=== PATIENT | female | born 1985 ===

== ENCOUNTER 2016-06-17 10:53 | Emergency (ER) | payer SELFPAY ==
[2016-06-17 11:30] VITALS: BP 126/73
[2016-06-17 11:46] LABS: Basophils % (Auto) 0.4 % (0.0-1.8); Eosinophils % (Auto) 0.3 % (0.0-4.3); Hematocrit 35.2 % (30.3-42.9); Hemoglobin 11.9 gm/dl (10.1-14.3); Mean Corpuscular HGB Conc 34 % (30-34); Mean Corpuscular Hemoglobin 30 pg (28-32); Mean Corpuscular Volume 90 fl (79-97); Platelet Count 389 K/mm3 (140-440); Red Blood Count 3.94 M/mm3 (3.65-5.03); Red Cell Distribution Width 13.6 % (13.2-15.2); White Blood Count 10.4 K/mm3 (4.5-11.0)
[2016-06-17 11:55] LABS: Anion Gap 17 mmol/L; Blood Urea Nitrogen 10 mg/dL (7-17); Carbon Dioxide 25 mmol/L (22-30); Chloride 102.5 mmol/L (98-107); Glucose 125 mg/dL (65-100); Potassium 3.9 mmol/L (3.6-5.0); Sodium 141 mmol/L (137-145)
[2016-06-17 13:16] LABS: Bacteria,Urine 1+ /HPF (Negative); Bilirubin,Urine NEG (Negative); Blood,Urine LG (Negative); Ketones,Urine NEG (Negative); Leukocyte Esterase,Urine NEG (Negative); Mucus,Urine FEW /HPF; Nitrite,Urine NEG (Negative); Protein,Urine <15 mg/dL mg/dL (Negative); Urobilinogen,Urine < 2.0 mg/dL (<2.0)
--- NOTE | 2016-06-18 00:35 | ED Elopement Review ---
ED Pt Elopement review - Results review Lab results: Laboratory Tests 06/17/16 06/17/16 06/17/16 11:33 11:33 11:33 WBC 10.4 RBC 3.94 Hgb 11.9 Hct 35.2 MCV 90 MCH 30 MCHC 34 RDW 13.6 Plt Count 389 Lymph % (Auto) 30.1 [place] % (Auto) 5.6 Eos % (Auto) 0.3 Baso % (Auto) 0.4 Lymph # 3.1 [place] # 0.6 Eos # 0.0 Baso # 0.0 Seg Neutrophils % 63.6 Seg Neutrophils # 6.6 Sodium 141 Potassium 3.9 Chloride 102.5 Carbon Dioxide 25 Anion Gap 17 BUN 10 Creatinine 0.4 L Estimated GFR > 60 BUN/Creatinine Ratio 25.00 Glucose 125 H Calcium 9.0 HCG, Qual Negative Urine Color Urine Turbidity Urine pH Ur Specific [place] Urine Protein Urine Glucose (UA) Urine Ketones Urine Blood Urine Nitrite Urine Bilirubin Urine Urobilinogen Ur Leukocyte Esterase Urine WBC (Auto) Urine RBC (Auto) U Epithel Cells (Auto) Urine Bacteria (Auto) Urine Mucus 06/17/16 12:53 WBC RBC Hgb Hct MCV MCH MCHC RDW Plt Count Lymph % (Auto) [place] % (Auto) Eos % (Auto) Baso % (Auto) Lymph # [place] # Eos # Baso # Seg Neutrophils % Seg Neutrophils # Sodium Potassium Chloride Carbon Dioxide Anion Gap BUN Creatinine Estimated GFR BUN/Creatinine Ratio Glucose Calcium HCG, Qual Urine Color Yellow Urine Turbidity Clear Urine pH 6.0 Ur Specific [place] 1.009 Urine Protein <15 mg/dl Urine Glucose (UA) Neg Urine Ketones Neg Urine Blood Lg Urine Nitrite Neg Urine Bilirubin Neg Urine Urobilinogen < 2.0 Ur Leukocyte Esterase Neg Urine WBC (Auto) 4.0 Urine RBC (Auto) 24.0 U Epithel Cells (Auto) 1.0 Urine Bacteria (Auto) 1+ Urine Mucus Few - Call Back decision Pt Call Back Decision: Pt to F/U with PMD
== END 2016-06-17 13:50 | disposition left against medical advice (07) ==
LOC: ED 10:53
DX: R11.0 Nausea (principal); M79.604 Pain in right leg; M79.605 Pain in left leg; M79.89 Other specified soft tissue disorders; Z53.21 Procedure and treatment not carried out due to patient leaving prior to being seen by health care provider
CPT/HCPCS: 36415; 80048; 81001; 84703; 85025

== ENCOUNTER 2016-06-18 02:53 | Emergency (ER) | payer SELFPAY ==
[2016-06-18 04:14] VITALS: BP 126/85
[2016-06-18] MEDS ORDERED: TORADOL IM ONE (07:43)
--- NOTE | 2016-06-18 07:54 | Emergency Department Report ---
ED Recheck HPI - General Chief Complaint: Medical Clearance Stated Complaint: VAGINAL BLEEDING Time Seen by Provider: 06/18/16 07:24 Source: patient, EMS, RN notes reviewed Mode of arrival: Wheelchair Limitations: No Limitations - History of Present Illness Initial Comments: Patient here reports that she is here to get her lab work she says she was here on 06/17 for vaginal spotting. She says she is in the treatment program in [facility] for narcotics abuse. She said she wants to make sure that she does have a urinary tract infection and also if she wants to get her lab results because she was spotting at the time. Patient now says that she is on her period and asked why she was cramping when she came in. She wants to know if she is . She said when she came into spotting but now she has.. She denies any other complaints about that she wants her lab results. Patient is in a wheelchair from previous injury. She had eloped and 06/17 and there is an elopement note that Dr. Borges reviewed her lab results from 06/17/16. Patient had. BMP and urinalysis done here initially and that she was running urine but she does have an infection, her BMP is stable. This was communicated to patient on this visit. She denies any fever or chills. Denies any abdominal pain. She is now requesting pain medication for lower back pain. Complaint: other (patient here because she wants her lab results. ) Initial Visit For: other (general spotting and cramping to abdomen) Returns Today for: other (today to get her lab results because she developed yesterday.) Symptoms Since Prior Visit: improved Context: other (return for lab results) Associated Symptoms: none - Related Data Allergies Allergy/AdvReac Type Severity Reaction Status Date / Time No Known Allergies Allergy Unverified 06/17/16 11:30 ED Review of Systems ROS: Stated complaint: VAGINAL BLEEDING Other details as noted in HPI Comment: All other systems reviewed and negative Constitutional: denies: chills, fever Respiratory: no symptoms reported Cardiovascular: denies: chest pain, palpitations, edema, syncope Gastrointestinal: denies: abdominal pain, nausea, vomiting Genitourinary: denies: urgency, dysuria, frequency, hematuria, discharge, abnormal menses (patient says that she has abnormal menses but now she is on her period) Musculoskeletal: back pain (lower back) Skin: denies: rash Neurological: denies: headache ED Past Medical Hx - Past Medical History Previous Medical History?: Yes Hx GERD: Yes Hx Psychiatric Treatment: Yes (DEPRESSION / ANXIETY) Additional medical history: T6 / T7 INCOMPLETE INJURY - Surgical History Past Surgical History?: Yes Additional Surgical History: VENA CAVA FILTER. BILATERAL HEEL CORD LENGTHENING. PLATE RIGHT WRIST. BACK SURGERY - Family History Family history: no significant - Social History Smoking Status: Current Every Day Smoker Substance Use Type: None ED Physical Exam - General Limitations: No Limitations General appearance: alert, in no apparent distress - Head Head exam: Present: atraumatic, normocephalic, normal inspection - Neck Neck exam: Present: normal inspection, full ROM. Absent: tenderness, thyromegaly - Respiratory Respiratory exam: Present: normal lung sounds bilaterally. Absent: respiratory distress, chest wall tenderness - Cardiovascular Cardiovascular Exam: Present: regular rate, normal rhythm, normal heart sounds - GI/Abdominal GI/Abdominal exam: Present: soft, normal bowel sounds. Absent: distended, tenderness - Extremities Exam Extremities exam: Present: normal capillary refill, other (patient is paralyzed and intubated wheelchair.). Absent: tenderness, pedal edema - Back Exam Back exam: Present: normal inspection, full ROM. Absent: tenderness, CVA tenderness (R), paraspinal tenderness, vertebral tenderness - Neurological Exam Neurological exam: Present: alert, oriented X3 - Psychiatric Psychiatric exam: Present: normal affect, normal mood - Skin Skin exam: Present: warm, dry, intact, normal color. Absent: rash ED Course Vital Signs 06/18/16 02:55 Temperature 98 F Pulse Rate 89 Respiratory 18 Rate Blood Pressure 126/85 [Right] O2 Sat by Pulse 100 Oximetry - Reevaluation(s) Reevaluation #1: 06/18/16 08:20 patient given Toradol because she requested because she says she's having in lower back pain. ED Recheck MDM - Medical Decision Making ED course: She lab reviewed from 06/17/2016 shows large amount of blood but patient is on her menses. Says she has back pain on and off and she is having pain at present and she requested to have pain medication and therefore she was given Toradol 60 mg IM. Her BMP is stable, negative test and a urinalysis has no sign of urinary tract infection. I discussed with patient her lab results and reviewed lab results at her bedside. Patient discharged from ED back to [place] in stable condition. Critical care attestation.: If time is entered above; I have spent that time in minutes in the direct care of this critically ill patient, excluding procedure time. ED Disposition Clinical Impression: Onset of menses Backache, unspecified Qualifiers: Back pain location: low back pain Chronicity: chronic Back pain laterality: unspecified Sciatica presence: without sciatica Qualified Code(s): M54.5 - Low back pain; G89.29 - Other chronic pain Disposition: DISCHARGED TO HOME OR SELFCARE Is pt being admited?: No Does the pt Need Aspirin: No Condition: Stable Instructions: Menstruation (ED), Back Pain (ED) Additional Instructions: Please follow up with her primary care physician which she said you have one , tomorrow. Referrals: PRIMARY CARE, [Primary Care Provider] - 24 Hours
== END 2016-06-18 08:37 | disposition home or self-care (01) ==
LOC: ED 02:53
DX: M54.5 Low back pain (principal); G89.29 Other chronic pain; N92.6 Irregular menstruation, unspecified; K21.9 Gastro-esophageal reflux disease without esophagitis; F32.9 Major depressive disorder, single episode, unspecified; F41.9 Anxiety disorder, unspecified; F17.200 Nicotine dependence, unspecified, uncomplicated
CPT/HCPCS: 96372; 99283; J1885